=== PATIENT | female | born 1995 | race Caucasian/White ===

== ENCOUNTER 2018-08-11 20:44 | Emergency (ER) | payer MEDICAID, OTHER ==
[~2018-08-11] VITALS: Ht 152.4 cm; Wt 67.5 kg
[2018-08-11] MEDS ORDERED: HYDROmorphone 2 MG/ML SYRINGE IM ONE (23:30)
[2018-08-11] MEDS ORDERED: ONDANSETRON HCL 4 MG/2 ML VIAL IM ONE (23:30)
[2018-08-12] MEDS ORDERED: KETAMINE HCL 50 MG/ML 10 ML VIAL IVP ONE
[2018-08-12 02:28] VITALS: BP 117/71
== END 2018-08-12 02:47 | disposition home or self-care (01) ==
LOC: EMS 20:46
DX: S43.085A Other dislocation of left shoulder joint, initial encounter (principal); X50.9XXA Other and unspecified overexertion or strenuous movements or postures, initial encounter; Y93.89 Activity, other specified; Y92.810 Car as the place of occurrence of the external cause; Y99.8 Other external cause status
CPT/HCPCS: 23650; 73030 ×2; 96372; 99285; J1170; J2405; J3490; 99152